=== PATIENT | male | born 1960 | race Caucasian/White ===

== ENCOUNTER 2016-09-09 06:54 | Day surgery (SDC) | payer BC ==
[2016-09-08 15:30] LABS: HEMATOCRIT 47.2 % (40.0-51.0); HEMOGLOBIN 16.5 g/dL (13.6-17.8)
[2016-09-08 15:58] LABS: A/G RATIO 1.4 (0.7-1.9); ALBUMIN 4.1 G/DL (3.5-5.0); ALKALINE PHOSPHATASE 68 U/L (45-117); BUN (BLOOD UREA NITROGEN) 19 MG/DL (6-23); CALCIUM, SERUM 9.4 MG/DL (8.5-10.4); CHLORIDE, SERUM 103 MMOL/L (96-112); CO2 (CARBON DIOXIDE) 30 MMOL/L (24-34); CREATININE 0.79 MG/DL (0.70-1.30); GFR AFRICAN AMERICAN 116 ML/MIN (>=60); GFR NON AFRICAN AMERICAN 100 ML/MIN (>=60); GLUCOSE, SERUM 93 MG/DL (60-99); POTASSIUM, SERUM 4.8 MMOL/L (3.5-5.3); SGOT(AST) 12 U/L (5-40); SGPT(ALT) 26 U/L (5-65); SODIUM, SERUM 138 MMOL/L (135-148); TOTAL BILIRUBIN 0.4 MG/DL (0-1.2); TOTAL PROTEIN 7.1 G/DL (6.0-8.5)
--- NOTE | ~2016-09-09 | OP ---
Record Of Operation [facility] [address] [place]. [address] NAME: CESAR DANG : 58 [place] [facility] [place] [id number] AGE: 56 ADM/REG DATE : 09/09/16 MR#: [id number] REPORT SERV DATE: 09/09/16 DICTATED BY: ROCKY FRAGOSO DATE: 09/09/16 REPORT STATUS : Draft TRANSCRIBED BY: MODL DATE: 09/09/16 DATE OF PROCEDURE: 09/09/2016 PREOPERATIVE DIAGNOSES: 1. Bilateral inguinal hernia. 2. Incarcerated umbilical hernia. POSTOPERATIVE DIAGNOSES: 1. Bilateral inguinal hernia. 2. Incarcerated umbilical hernia. PROCEDURES: 1. Laparoscopic reduction and repair of bilateral inguinal hernia. 2. Reduction and primary repair of umbilical hernia. SURGEON: Rocky Fragoso M.D. DESCRIPTION OF OPERATIVE PROCEDURE: The patient was brought to operating suite, placed in the supine position, underwent satisfactory general endotracheal anesthesia without incident. The skin of the abdomen was scrubbed, prepped, and draped in the usual sterile fashion. 0.5% Marcaine with epinephrine was utilized as supplemental local anesthesia at all intended trocar and surgical sites. Initially, a curvilinear infraumbilical incision was performed dissecting through the skin and subcutaneous tissue, and elevating the umbilical skin off the subcutaneous tissue. The hernia sac was not violated at this point. Inferomedial retraction to the left exposed the medial aspect of the left anterior rectus sheath which was incised longitudinally. This exposed the medial aspect of the left rectus muscle which was retracted laterally exposing the left posterior rectus sheath. A preperitoneal dissection balloon was inserted posterior to the left rectus sheath to the level of the pubic tubercle. It was insufflated under direct camera visualization creating a preperitoneal dissection space bilaterally. This balloon was then replaced with a structural balloon, and CO2 was insufflated into the preperitoneal space for pressures of 15 mmHg throughout the case. Two additional 5-mm trocars were placed in the infraumbilical midline under direct visualization. Completion of the preperitoneal dissection was performed bilaterally skeletonizing the spermatic cords, inferior epigastric vessels and Hesselbach's triangle. The patient had bilateral indirect hernia with the worst and most difficult dissection on the right, where the patient had a longstanding chronic thick sac extending into the upper scrotum. This was dissected off the cord structures and from the internal ring, but a number to tears developed and these were closed with a combination of 0 PDS ENDOLOOP as well as the Weck 5- mm polymer clip system. Two separately placed pieces of Bard 3DMax size large oriented left and right were utilized Record Of Operation [facility] [address] [place]. [address] NAME: CESAR DANG : 58 [place] [facility] [place] [id number] AGE: 56 ADM/REG DATE : 09/09/16 MR#: [id number] REPORT SERV DATE: 09/09/16 DICTATED BY: ROCKY FRAGOSO DATE: 09/09/16 REPORT STATUS : Draft TRANSCRIBED BY: ALESHA DATE: 09/09/16 for the repair. They were both dipped in local anesthesia, rolled up, and then placed in the preperitoneal space. They were unrolled over the inguinal canals bilaterally covering Hesselbach's triangle, the inferior epigastric vessels, and allowing the cord structures to egress from the lower edge of the mesh itself. Multiple firings of the 5-mm SorbaFix helical tacker were utilized to plicate the patches in position predominantly on the pubic tubercle, and the rectus sheath and transverse abdominis musculature. Hemostasis was assured. The preperitoneal space was allowed to collapse. CO2 was allowed to egress from the preperitoneal space. Trocars were removed. No muscular bleeding was noted. Attention was then turned to repair of the umbilical hernia defect. The patient had an incarcerated preperitoneal fat through a 5 to 7 mm umbilical defect. The fat was excised from the overlying skin and surrounding fibrofatty tissue, as well as the muscular aponeurotic fascia. In a "zyon-axdi-gxoym" interrupted vertical mattress fashion, the cephalad aspect of the umbilical fascia was drawn over the caudad aspect with two separately placed sutures of 0 Ethibond. These were then tied down. The left anterior rectus sheath incision was also closed with a [id number] suture of 0 Ethibond. Subcutaneous tissue was closed at all sites with interrupted 3-0 Vicryl running subcuticular stitch, 4-0 Vicryl for the skin. Dermabond skin adhesive was placed. The patient tolerated the procedure well, and was returned to the PACU in stable condition. At the termination procedure, sponge, needle, lap, and instrument counts were correct x3. ESTIMATED BLOOD LOSS: Less than 10 to 15 mL. CLIFFORD/MODL Rocky Fragoso M.D. / [id number] CC: Rocky Fragoso M.D.
[~2016-09-09 06:54] MED LIST: ADVIL PO; LORTAB
== END 2016-09-09 23:59 | disposition home or self-care (01) ==
LOC: MSC 06:54
PROVIDERS: Specialist
PROC: 0YUA4JZ Supplement Bilateral Inguinal Region with Synthetic Substitute, Percutaneous Endoscopic Approach (ICD-10-PCS; principal; 2016-09-09 07:45)
PROC: 0WQF0ZZ Repair Abdominal Wall, Open Approach (ICD-10-PCS; 2016-09-09 07:45)
DX: K40.20 Bilateral inguinal hernia, without obstruction or gangrene, not specified as recurrent (principal); K42.9 Umbilical hernia without obstruction or gangrene; F17.210 Nicotine dependence, cigarettes, uncomplicated; Z79.899 Other long term (current) drug therapy
CPT/HCPCS: 80053; 85014; 85018; 93005; A9270-GY; C1726; C1727; C1781; J0690; J1885; J2175; J2250; J2270; J2405; J2550; J2710; J3010